=== PATIENT | male | born 1940 | race Caucasian/White ===

== ENCOUNTER 2019-05-14 14:54 | Emergency (ER) | payer OTHER ==
[~2019-05-14] VITALS: Ht 172.7 cm; Wt 81.2 kg
[2019-05-14 15:17] LABS: BASOPHILS # (AUTO) 0.1 /CMM (0.0-0.2); BASOPHILS % (AUTO) 0.8 % (0.0-2.0); EOSINOPHILS % (AUTO) 2.9 % (0.0-6.0); HEMATOCRIT 40 % (39-51); HEMOGLOBIN 13.3 g/dL (13.5-17.5); LYMPHOCYTES # (AUTO) 1.3 /CMM (0.8-4.8); LYMPHOCYTES % (AUTO) 21.4 % (20.0-44.0); MEAN CORPUSCULAR HGB CONC 33 g/dl (31.0-36.0); MEAN CORPUSCULAR VOLUME 98 fL (80-96); MONOCYTES # (AUTO) 0.5 /CMM (0.1-1.30); MONOCYTES % (AUTO) 7.7 % (2.0-12.0); NEUTROPHILS # (AUTO) 4.2 /CMM (1.8-8.9); NEUTROPHILS % (AUTO) 67.2 % (43.0-81.0); PLATELET COUNT (AUTO) 178 /CMM (150-450); RED BLOOD CELL COUNT(AUTO) 4.13 MIL/uL (4.5-6.0); WHITE BLOOD COUNT (AUTO) 6.3 K/uL (4.3-11.0)
[2019-05-14] MEDS ORDERED: SIMV-49 PO (15:25)
[2019-05-14] MEDS ORDERED: TEST200V3 IM (15:25)
[2019-05-14] MEDS ORDERED: OMEP40CA13 PO (15:25)
[2019-05-14] MEDS ORDERED: MULT1TAB73 PO (15:25)
[2019-05-14] MEDS ORDERED: SILD20TA2 PO (15:25)
[2019-05-14] MEDS ORDERED: EZET10TA32 PO (15:25)
[2019-05-14] MEDS ORDERED: CYAN-51 PO (15:25)
[2019-05-14] MEDS ORDERED: ALLO100T PO (15:25)
[2019-05-14] MEDS ORDERED: ASPI-1169 PO (15:25)
[2019-05-14] MEDS ORDERED: BUPR-51 PO (15:25)
[2019-05-14] MEDS ORDERED: ATEN50TA PO (15:25)
[2019-05-14] MEDS ORDERED: CHOL100040 PO (15:25)
[2019-05-14] MEDS ORDERED: ALPR0.5T8 PO (15:25)
[2019-05-14 15:32] LABS: CALCIUM, SERUM 8.9 mg/dL (8.5-10.1); CARBON DIOXIDE 32 mmol/L (21-32); CHLORIDE 102 mmol/L (98-107); CREATININE 1.6 mg/dL (0.6-1.3); GLUCOSE 94 mg/dL (74-106); POTASSIUM 4.5 mmol/L (3.5-5.1); SODIUM SERUM 141 mmol/L (136-145); UREA NITROGEN, BLOOD 24 mg/dL (7-18)
--- NOTE | 2019-05-14 15:53 | NUR ---
CALLED NURSING SUP FOR TELE BED.
[2019-05-14] MEDS ORDERED: IV NS 0.9% 500 ML BAG IV ONE (16:00)
--- NOTE | 2019-05-14 16:03 | NUR ---
NURSING SUP GAVE TELE BED 114-2.
--- NOTE | 2019-05-14 16:09 | NUR ---
Harrison batista in [facility] - 05/14/19 at 1624 by LANDRY MCKENNA MCCANN
[2019-05-14] MEDS ORDERED: IOHEXOL-350 100 ML VIAL IV ONE (16:13)
[2019-05-14] MEDS ORDERED: IV NS 0.9% 250 ML IV ONE (16:13)
--- NOTE | 2019-05-14 16:35 | NUR ---
Patient awake alert non distress SR continue to monitor
--- NOTE | 2019-05-14 17:41 | NUR ---
Obtained [facility] LAC 18 G. by Winston noted blood return able to flush Ns no edema no pain
[2019-05-14] MEDS ORDERED: NITROGLYCERIN 0.4 MG/TAB BOTTLE ONE (17:46)
[2019-05-14] MEDS ORDERED: METOPROLOL TARTRATE INJ 5 MG/5 ML AMPUL ONE ×2 (17:47→18:12)
[2019-05-14] MEDS: METOPROLOL TARTRATE INJ 5 MG/5 ML AMPUL IVP PRN ×10 (17:50→18:35)
[2019-05-14] MEDS ORDERED: NITROGLYCERIN 0.4 MG/TAB BOTTLE SL ONE (18:00)
--- NOTE | 2019-05-14 18:16 | NUR ---
WILLIAN ROMEO FROM [facility] CALLED TO FOLLOW UP ON THE CTA RESULTS. STILL PENDING RESULTS. INSTRUCTED I WOULD CALL BACK WHEN RESULTS ARE IN. [place] [phone].
--- NOTE | 2019-05-14 18:40 | NUR ---
CALLED [facility] FOR READ ON CTA.
--- NOTE | 2019-05-14 18:46 | NUR ---
Patient in CT @ this time
[2019-05-14] MEDS ORDERED: IV NS 0.9% 1,000 ML BAG IV ONE (19:00)
--- NOTE | 2019-05-14 19:14 | NUR ---
CALLED [facility] FOR FOLLOW UP ON CTA. SCAN SHOULD BE READ BY NOW. WILL LOOK AT RESULTS.
--- NOTE | 2019-05-14 19:20 | NUR ---
REC'D REPORT FROM KEVIN JACOBO FOR NURY. PT RESTING COMFORTABLY IN BED. STILL ON CONTINUOUS BIO MEDICAL TECHNICIAN. WILL CONTINUE TO MONITOR
--- NOTE | 2019-05-14 19:31 | NUR ---
MAIL CARRIER NOW ENDORSED TO [place] , CALL BACK WHEN CTA RESULTS FINALIZED. IF NEGATIVE, POSSIBLE TRANSFER TO [facility]
--- NOTE | 2019-05-14 19:35 | NUR ---
CALLED [facility] AND SPOKE WITH MELISA TO FOLLOW UP WITH CTA. ACCORDING TO MELISA, THE FIRST RADIOLOGIST THAT WAS ASSIGNED WENT HOME SO SECOND RADIOLOGISTS WILL READ IT. WILL CALL BACK WITHIN 30 MINUTES.
--- NOTE | 2019-05-14 20:03 | NUR ---
CALLED [employer] [employer] AND INFORMED OF CTA RESULTS, COPY OF RESULTS FAXED WELL
[2019-05-14] MEDS ORDERED: PIPERACILLIN /TAZOBACTAM 3.375 G VIAL IV ONE (20:05)
[2019-05-14] MEDS: PIPERACILLIN /TAZOBACTAM 3.375 G in IV D5W 50 ML IV ONE ×2 (20:14→20:43)
--- NOTE | 2019-05-14 20:36 | NUR ---
LARD TUB WASHER AT BEDSIDE FOR REDRAW
--- NOTE | 2019-05-14 20:45 | NUR ---
DR. SRINIVASAN ON THE PHONE WITH BERNARDO LOPEZ, DR. MEADOWS
--- NOTE | 2019-05-14 21:16 | NUR ---
TRANSFER INFO: PT WILL BE TRANSFERRED TO [facility] BED ASSIGNMENT: [place] NUMBER FOR REPORT: [phone] PENDING TRANSPORTATION ETA
--- NOTE | 2019-05-14 21:55 | NUR ---
CALLED [facility] FOR TRANSPORTATION ETA 230 TRIP NUMBER [id number]
--- NOTE | 2019-05-14 22:48 | NUR ---
GAVE REPORT TO BROOKLYNN BROWN FROM [facility] FOR NURY
[2019-05-14 23:23] VITALS: BP 148/76
--- NOTE | 2019-05-14 23:23 | NUR ---
GAVE REPORT TO LUANNE Garcia FOR TRANSPORTATION NURY
== END 2019-05-14 23:42 | disposition short-term general hospital (02) ==
LOC: ER 14:54
DX: I24.9 Acute ischemic heart disease, unspecified (principal); J18.9 Pneumonia, unspecified organism; I25.2 Old myocardial infarction; F10.10 Alcohol abuse, uncomplicated; E11.9 Type 2 diabetes mellitus without complications; Y90.9 Presence of alcohol in blood, level not specified; Z95.5 Presence of coronary angioplasty implant and graft; Z60.2 Problems related to living alone; Z98.890 Other specified postprocedural states; Z79.82 Long term (current) use of aspirin; Z79.899 Other long term (current) drug therapy
CPT/HCPCS: 36415; 71045; 75574; 80048; 83605; 84145; 84484 ×2; 85025; 85730; 87040 ×2; 93005 ×4; 96365; 99285; J2543; J3490 ×2; J7030; J7050; Q9967; J7060